=== PATIENT | female | born 1965 | race Hispanic/Latino ===

== ENCOUNTER 2022-03-03 15:00 | Inpatient (IN) | payer OTHER ==
[~2022-03-03] VITALS: Ht 165.1 cm; Wt 93.4 kg
[2022-03-03 15:19] LABS: BASOPHILS % (AUTO) 0.6 % (0.0-5.0); EOSINOPHILS % (AUTO) 2.8 % (0.0-8.0); LYMPHOCYTES % (AUTO) 27.9 % (21.0-51.0); MEAN CORPUSCULAR HGB CONC 32.8 g/dL (32.0-36.0); MEAN CORPUSCULAR VOLUME 88.7 fL (79-99); MONOCYTES % (AUTO) 6.4 % (3.0-13.0); NEUTROPHILS % (AUTO) 62.1 % (40.0-77.0); PLATELET COUNT (AUTO) 350 K/uL (130-400); RED BLOOD CELL COUNT(AUTO) 4.51 MIL/uL (4.00-5.50); RED CELL DISTRIBUTION WIDTH 15.8 % (11.0-15.5); WHITE BLOOD COUNT (AUTO) 8.5 K/uL (4.8-10.8)
[2022-03-03 15:32] LABS: ALBUMIN 3.3 g/dL (3.5-5.0); CREATININE 0.8 mg/dL (0.5-1.5); CRP QUANTITATIVE 7.8 mg/L (0.00-9.0); POTASSIUM 3.8 mmol/L (3.5-5.1)
[2022-03-03 15:34] LABS: INR 0.93 (0.85-1.15); PROTHROMBIN TIME 9.8 SEC (9.6-11.6)
[2022-03-03 15:36] LABS: PARTIAL THROMBOPLASTIN TIME 25.7 SEC (26.3-35.5)
[2022-03-03 15:40] LABS: APPEARANCE,URINE CLEAR (CLEAR); BILIRUBIN,URINE NEGATIVE (NEGATIVE); COLOR,URINE LIGHT-YELLOW (YELLOW); GLUCOSE, URINE (UA) NEGATIVE (NEGATIVE); KETONES,URINE NEGATIVE (NEGATIVE); LEUKOCYTE ESTERASE ,URINE NEGATIVE Leu/uL (NEGATIVE); NITRATE,URINE NEGATIVE (NEGATIVE); OCCULT BLOOD,URINE NEGATIVE (NEGATIVE); PH,URINE 5.5 (5.0-8.0); PROTEIN,URINE NEGATIVE (NEGATIVE); UROBILINOGEN,URINE 0.2 mg/dL (0.2-1.0)
[2022-03-03 15:52] LABS: MUCUS,URINE RARE LPF (None Seen); RBC,URINE 0-1 /HPF (0-1); SQUAMOUS EPITHELIAL CELL,UR RARE /HPF (0-2); WBC,URINE 0-1 /HPF (0-1)
[2022-03-04 08:59] VITALS: BP 111/64
[2022-03-04] MEDS ORDERED: OMEP40CA21 PO (13:02)
[2022-03-04] MEDS ORDERED: BACL10TA PO (13:02)
[2022-03-04] MEDS ORDERED: COD1CAPS16 PO (13:02)
[2022-03-04] MEDS ORDERED: MV-M1TAB20 PO (13:02)
[2022-03-04] MEDS ORDERED: CYAN250014 PO (13:02)
[2022-03-04] MEDS ORDERED: MULT-1203 PO (13:02)
[2022-03-04] MEDS ORDERED: ozempic SQ (13:02)
[2022-03-04] MEDS ORDERED: Tylenol Arthritis PO (13:02)
[2022-03-05] VITALS (25 sets, daily range): BP systolic 92–153; BP diastolic 45–92
[2022-03-05] MEDS: CEFAZOLIN SODIUM 1 GM VIAL IVP SCH ×4 (05:00→20:51)
[2022-03-05] MEDS ORDERED: TRANEXAMIC ACID 1000MG/10ML ONE ×3 (05:13→07:05)
[2022-03-05] MEDS ORDERED: ROPIVACAINE 0.5% 5MG/ML 30ML IJ ONE (05:25)
[2022-03-05] MEDS ORDERED: KETAMINE 50MG/ML SYRINGE 50 MG/ML DISP.SYRIN IV ONE (05:26)
[2022-03-05] MEDS ORDERED: 0.9%NACL 1000ML 1,000 ML IV ONE (06:18)
[2022-03-05] MEDS ORDERED: LIDOCAINE PF 100MG/5ML (2%) SYRINGE 5ML ONE ×3 (07:06→09:55)
[2022-03-05] MEDS ORDERED: CITRIC ACID/SODIUM CITRATE 30 ML UDCUP ONE (07:07)
[2022-03-05] MEDS ORDERED: DEXAMETHASONE SOD PHOSPHATE 10MG/ML 1ML VIAL ONE (07:13)
[2022-03-05] MEDS ORDERED: SUCCINYLCHOLINE CHLORIDE 20 MG/ML 10 ML VIAL ONE (07:13)
[2022-03-05] MEDS ORDERED: ONDANSETRON 4MG INJ ONE (07:14)
[2022-03-05] MEDS ORDERED: ROCURONIUM 10MG/1ML SYR 10 MG/ML ML ONE ×2 (07:14→08:22)
[2022-03-05] MEDS ORDERED: MIDAZOLAM HCL 1 MG/ML 2ML VIAL ONE (07:14)
[2022-03-05] MEDS ORDERED: PROPOFOL 10 MG/ML 20ML VIAL IV ONE (07:14)
[2022-03-05] MEDS ORDERED: GLYCOPYRROLATE 1 MG/5 ML SYRINGE ONE (07:14)
[2022-03-05] MEDS ORDERED: NEOSTIGMINE 5MG/5ML SYR IV ONE (07:14)
[2022-03-05] MEDS ORDERED: FENTANYL CITRATE PF 50 MCG/1 ML 2ML VIAL ONE ×3 (07:14→10:45)
[2022-03-05] MEDS ORDERED: MEPERIDINE-PF 25 MG/ML SYG ONE ×2 (09:49→10:40)
[2022-03-05] MEDS ORDERED: HYDROCODONE/ACETAMINOPHEN 5/325 MG TAB PO PRN (10:00)
[2022-03-05] MEDS ORDERED: POTASSIUM CHLORIDE 20MEQ/100ML 100 ML IV PRN (10:00)
[2022-03-05] MEDS ORDERED: DiphenhydrAMINE HCL 50 MG/ML VIAL IVP PRN (10:00)
[2022-03-05] MEDS ORDERED: ONDANSETRON 4MG INJ IVP PRN (10:00)
[2022-03-05] MEDS ORDERED: KCL 20 MEQ ERTAB PO PRN (10:00)
[2022-03-05] MEDS ORDERED: TRAMADOL HCL 50 MG TABLET PO PRN (10:00)
[2022-03-05] MEDS: 0.9%NACL 1000ML 1,000 ML IV SCH ×2 (10:00→19:40)
[2022-03-05] MEDS ORDERED: FERROUS FUMARATE 324 MG TABLET PO PRN (10:00)
[2022-03-05] MEDS ORDERED: CALCIUM CARB 500MG PO PRN (10:00)
[2022-03-05] MEDS ORDERED: LIDOCAINE HCL-MPF 1% 2ML VIAL IV PRN (10:00)
[2022-03-05] MEDS ORDERED: POTASSIUM CHLORIDE 10% ELIXIR 20 MEQ/15 ML UDCUP PO PRN (10:00)
[2022-03-05] MEDS: KETOROLAC 15MG/ML VIAL (15MG/ML) IV SCH ×2 (10:00→18:22)
[2022-03-05] MEDS ORDERED: SUGAMMADEX SODIUM 200 MG/2 ML VIAL IV ONE (10:08)
[2022-03-05] MEDS: CYCLOBENZAPRINE HCL 10 MG TABLET PO PRN (11:52)
[2022-03-05] MEDS: GABAPENTIN 100 MG CAPSULE PO SCH ×2 (15:35→19:39)
[2022-03-05] MEDS ORDERED: BACLOFEN 10 MG TABLET PO PRN (18:30)
[2022-03-05] MEDS: PHARMACY COMMUNICATION MISC SCH ×2 (19:30→22:43)
[2022-03-05] MEDS: COD LIVER OIL PO SCH (19:39)
[2022-03-05] MEDS: DOCUSATE SODIUM 100 MG CAP PO SCH (19:39)
[2022-03-05] MEDS: CYANOCOBALAMIN (VITAMIN B-12) 1,000 MCG TABLET PO SCH (19:40)
[2022-03-05] MEDS: VITAMIN D3 COMPLETE PO SCH (19:40)
[2022-03-06] VITALS: BP 128/69
[2022-03-06] MEDS: KETOROLAC 15MG/ML VIAL (15MG/ML) IV SCH (01:39)
[2022-03-06] MEDS: PHARMACY COMMUNICATION MISC SCH ×3 (03:15→22:41)
[2022-03-06 04:00] VITALS: BP 113/67
[2022-03-06 04:06] LABS: HEMATOCRIT 31.9 % (36-48); MEAN CORPUSCULAR HGB CONC 33.2 g/dL (32.0-36.0); MEAN CORPUSCULAR VOLUME 87.2 fL (79-99); RED BLOOD CELL COUNT(AUTO) 3.66 MIL/uL (4.00-5.50); RED CELL DISTRIBUTION WIDTH 15.5 % (11.0-15.5); WHITE BLOOD COUNT (AUTO) 11.9 K/uL (4.8-10.8)
[2022-03-06 04:13] LABS: CREATININE 0.8 mg/dL (0.5-1.5); POTASSIUM 3.3 mmol/L (3.5-5.1)
[2022-03-06] MEDS: 0.9%NACL 1000ML 1,000 ML IV SCH (05:02)
[2022-03-06 08:00] VITALS: BP 157/101
[2022-03-06] MEDS: ASPIRIN 325MG TAB PO SCH (08:07)
[2022-03-06] MEDS: POLYETHYLENE GLYCOL 3350 17 GM POWD.PACK PO SCH (08:07)
[2022-03-06] MEDS: CYCLOBENZAPRINE HCL 10 MG TABLET PO PRN (08:07)
[2022-03-06] MEDS: GABAPENTIN 100 MG CAPSULE PO SCH ×3 (08:07→19:27)
[2022-03-06] MEDS: CYANOCOBALAMIN (VITAMIN B-12) 1,000 MCG TABLET PO SCH ×2 (08:08→19:27)
[2022-03-06] MEDS: PANTOPRAZOLE 40 MG TAB DR PO SCH (08:08)
[2022-03-06] MEDS: MULTIVITAMIN TABLET PO SCH (08:08)
[2022-03-06] MEDS: DOCUSATE SODIUM 100 MG CAP PO SCH ×2 (08:08→19:27)
[2022-03-06] MEDS: VITAMIN D3 COMPLETE PO SCH ×2 (09:00→19:27)
[2022-03-06] MEDS: COD LIVER OIL PO SCH ×2 (09:00→19:27)
[2022-03-06 11:32] VITALS: BP 155/92
[2022-03-06] MEDS: HYDROCODONE/ACETAMINOPHEN 5/325 MG TAB PO PRN ×2 (15:26→19:30)
[2022-03-06 16:00] VITALS: BP 130/70
[2022-03-06 20:00] VITALS: BP 100/65
[2022-03-07] VITALS: BP 151/66
[2022-03-07] MEDS: PHARMACY COMMUNICATION MISC SCH (02:49)
[2022-03-07 03:30] VITALS: BP 111/75
[2022-03-07] MEDS: PANTOPRAZOLE 40 MG TAB DR PO SCH (08:26)
[2022-03-07] MEDS: COD LIVER OIL PO SCH (08:26)
[2022-03-07] MEDS: GABAPENTIN 100 MG CAPSULE PO SCH ×2 (08:26→15:44)
[2022-03-07] MEDS: ASPIRIN 325MG TAB PO SCH (08:26)
[2022-03-07] MEDS: DOCUSATE SODIUM 100 MG CAP PO SCH (08:26)
[2022-03-07] MEDS: POLYETHYLENE GLYCOL 3350 17 GM POWD.PACK PO SCH (08:27)
[2022-03-07] MEDS: VITAMIN D3 COMPLETE PO SCH (08:27)
[2022-03-07] MEDS: HYDROCODONE/ACETAMINOPHEN 5/325 MG TAB PO PRN ×2 (08:28→13:06)
[2022-03-07] MEDS: MULTIVITAMIN TABLET PO SCH (08:29)
[2022-03-07] MEDS: CYANOCOBALAMIN (VITAMIN B-12) 1,000 MCG TABLET PO SCH (08:30)
[2022-03-07 09:00] VITALS: BP 119/63
[2022-03-07 11:20] VITALS: BP 123/58
[2022-03-07] MEDS ORDERED: MAGNESIUM HYDROXIDE 30 ML/UDCUP ONE (11:59)
[2022-03-07] MEDS ORDERED: MAGNESIUM HYDROXIDE 30 ML/UDCUP PO SCH (12:00)
[2022-03-07 15:30] VITALS: BP 110/70
[2022-03-07] MEDS ORDERED: CYCL-309 PO (16:49)
[2022-03-07] MEDS ORDERED: ASPI-891 PO (16:49)
[2022-03-07] MEDS ORDERED: GABA100C PO (16:49)
[2022-03-07] MEDS ORDERED: HYDR-4060 PO ×2 (16:49→17:35)
[2022-03-07] MEDS ORDERED: DOCU-116 PO ×2 (16:49→17:35)
[2022-03-07] MEDS ORDERED: GABA-529 PO (17:35)
[2022-03-07] MEDS ORDERED: CYCL5TAB PO (17:35)
[2022-03-07] MEDS ORDERED: ASPI-1012 PO (17:35)
[2022-03-08] MEDS ORDERED: ASPIRIN 325MG EC TAB PO SCH (09:00)
[2022-03-08] MEDS ORDERED: BISACODYL 10 MG SUPP.RECT RC PRN (10:00)
== END 2022-03-07 20:00 | disposition home health service (06) | DRG 324 ==
LOC: EDSTATUS 15:00 → DAHIP 03-05 05:55 → 4CH 03-05 11:35 → 4BH 03-06 15:39
PROVIDERS: ADMIT Student in an Organized Health Care Education/Training Program; ATTEND Student in an Organized Health Care Education/Training Program
PROC: 0SRB0JZ Replacement of Left Hip Joint with Synthetic Substitute, Open Approach (ICD-10-PCS; principal; 2022-03-05 07:26)
DX: M87.052 Idiopathic aseptic necrosis of left femur (principal); D64.9 Anemia, unspecified; E87.6 Hypokalemia; Z20.822 Contact with and (suspected) exposure to COVID-19
CPT/HCPCS: 36415; 73502; 80048; 81001; 82040; 82948; 84134; 84703; 85025; 85027; 85610; 85730; 86140; 87088; 87426; 87641; 97039; C1776; G0378; J0330; J0690; J1100; J1885; J2001; J2175; J2250; J2405; J2704; J2710; J2795; J3010; J3490; J7030

== ENCOUNTER 2022-06-20 08:00 | Inpatient (IN) | payer OTHER ==
[~2022-06-20] VITALS: Ht 172.7 cm; Wt 87.1 kg
[~2022-06-20 08:00] MED LIST: MULT-1203 PO; MV-M1TAB20 PO; OMEP40CA21 PO
[2022-08-08 12:11] LABS: BASOPHILS % (AUTO) 0.8 % (0.0-5.0); EOSINOPHILS % (AUTO) 4.3 % (0.0-8.0); HEMATOCRIT 43.7 % (36-48); LYMPHOCYTES % (AUTO) 29.3 % (21.0-51.0); MEAN CORPUSCULAR HEMOGLOBIN 27.5 pg (27.0-33.0); MEAN CORPUSCULAR HGB CONC 32.3 g/dL (32.0-36.0); MEAN CORPUSCULAR VOLUME 85.4 fL (79-99); MONOCYTES % (AUTO) 6.8 % (3.0-13.0); NEUTROPHILS % (AUTO) 58.5 % (40.0-77.0); PLATELET COUNT (AUTO) 402 K/uL (130-400); RED BLOOD CELL COUNT(AUTO) 5.12 MIL/uL (4.00-5.50); RED CELL DISTRIBUTION WIDTH 16.4 % (11.0-15.5)
[2022-08-08 12:41] LABS: INR 0.93 (0.85-1.15); PROTHROMBIN TIME 9.8 SEC (9.6-11.6)
[2022-08-08 12:42] LABS: PARTIAL THROMBOPLASTIN TIME 27.3 SEC (26.3-35.5)
[2022-08-08 12:43] LABS: ALBUMIN 3.7 g/dL (3.5-5.0); CARBON DIOXIDE 28 mmol/L (21-32); CHLORIDE 103 mmol/L (101-111); CREATININE 0.8 mg/dL (0.5-1.5); GLOMERULAR FILTR. RATE CALC 87 mL/min (>90); GLUCOSE,RANDOM 89 mg/dL (70-105); POTASSIUM 3.9 mmol/L (3.5-5.1); SODIUM SERUM 140 mmol/L (136-145); UREA NITROGEN, BLOOD 8 mg/dL (7-18)
[2022-08-08 12:45] LABS: CRP QUANTITATIVE < 2.00 mg/L (0.00-9.0)
[2022-08-11] VITALS (31 sets, daily range): BP systolic 89–161; BP diastolic 63–92
[2022-08-11] MEDS ORDERED: CEFAZOLIN SODIUM 1 GM VIAL IVPB SCH (06:00)
[2022-08-11 06:39] LABS: APPEARANCE,URINE SL CLOUDY (CLEAR); BILIRUBIN,URINE NEGATIVE (NEGATIVE); COLOR,URINE YELLOW (YELLOW); GLUCOSE, URINE (UA) NEGATIVE (NEGATIVE); KETONES,URINE 5 mg/dL (NEGATIVE); LEUKOCYTE ESTERASE ,URINE MODERATE Leu/uL (NEGATIVE); NITRATE,URINE POSITIVE (NEGATIVE); OCCULT BLOOD,URINE TRACE-INTACT (NEGATIVE); PROTEIN,URINE TRACE mg/dL (NEGATIVE); UROBILINOGEN,URINE 0.2 mg/dL (0.2-1.0)
[2022-08-11 07:07] LABS: BACTERIA,URINE Moderate /HPF (None Seen)
[2022-08-11 07:08] LABS: SQUAMOUS EPITHELIAL CELL,UR Few /HPF (0-2)
[2022-08-11] MEDS ORDERED: FENTANYL CITRATE PF 50 MCG/1 ML 2ML VIAL ONE ×3 (08:19→13:02)
[2022-08-11] MEDS ORDERED: MIDAZOLAM HCL 1 MG/ML 2ML VIAL ONE (08:19)
[2022-08-11] MEDS ORDERED: PROPOFOL 10 MG/ML 20ML VIAL IV ONE (08:19)
[2022-08-11] MEDS ORDERED: ROCURONIUM 10MG/1ML SYR 10 MG/ML ML ONE ×2 (08:19→10:11)
[2022-08-11] MEDS ORDERED: TRANEXAMIC ACID 1000MG/10ML ONE ×2 (08:20→12:47)
[2022-08-11] MEDS ORDERED: ONDANSETRON 4MG INJ ONE (08:32)
[2022-08-11] MEDS ORDERED: ROPIVACAINE 0.5% 5MG/ML 30ML IJ ONE (08:37)
[2022-08-11] MEDS ORDERED: LIDOCAINE 2%-EPI 1:200,000 20 ML VIAL IJ ONE (08:37)
[2022-08-11] MEDS ORDERED: DEXAMETHASONE SOD PHOSPHATE 10MG/ML 1ML VIAL ONE (08:38)
[2022-08-11] MEDS ORDERED: CEFAZOLIN SODIUM 2 GM VIAL IVPB ONE (09:49)
[2022-08-11] MEDS ORDERED: TRANEXAMIC ACID 1000MG/10ML IV ONE (10:11)
[2022-08-11] MEDS ORDERED: MORPHINE PF 100MG/10ML AMP IV ONE (10:29)
[2022-08-11] MEDS ORDERED: NEOSTIGMINE 5MG/5ML SYR IV ONE (12:50)
[2022-08-11] MEDS ORDERED: GLYCOPYRROLATE 1 MG/5 ML SYRINGE ONE (12:50)
[2022-08-11] MEDS ORDERED: KETOROLAC 30MG VIAL (30MG/ML) ONE (13:02)
[2022-08-11] MEDS ORDERED: FERROUS FUMARATE 324 MG TABLET PO PRN (13:30)
[2022-08-11] MEDS ORDERED: KETOROLAC 15MG/ML VIAL (15MG/ML) IV PRN (13:30)
[2022-08-11] MEDS ORDERED: KCL 20 MEQ ERTAB PO PRN (13:30)
[2022-08-11] MEDS ORDERED: POTASSIUM CHLORIDE 20MEQ/100ML 100 ML IV PRN (13:30)
[2022-08-11] MEDS ORDERED: DiphenhydrAMINE HCL 50 MG/ML VIAL IVP PRN (13:30)
[2022-08-11] MEDS ORDERED: POTASSIUM CHLORIDE 10% ELIXIR 20 MEQ/15 ML UDCUP PO PRN (13:30)
[2022-08-11] MEDS ORDERED: LIDOCAINE HCL-MPF 1% 2ML VIAL IV PRN (13:30)
[2022-08-11] MEDS ORDERED: CYCLOBENZAPRINE HCL 10 MG TABLET PO PRN (13:30)
[2022-08-11] MEDS ORDERED: KETOROLAC 15MG/ML VIAL (15MG/ML) IV SCH (13:30)
[2022-08-11] MEDS ORDERED: ONDANSETRON 4MG INJ IVP PRN (13:30)
[2022-08-11] MEDS ORDERED: MEPERIDINE-PF 25 MG/ML SYG ONE (13:35)
[2022-08-11] MEDS ORDERED: METOCLOPRAMIDE 10 MG/2 ML VIAL ONE (13:44)
[2022-08-11] MEDS: CEFAZOLIN SODIUM 1 GM VIAL IVP SCH (17:35)
[2022-08-11] MEDS: GABAPENTIN 100 MG CAPSULE PO SCH ×2 (17:36→20:32)
[2022-08-11] MEDS: 0.9%NACL 1000ML 1,000 ML IV SCH (19:18)
[2022-08-11] MEDS: VITAMIN D3 COMPLETE PO SCH (20:32)
[2022-08-11] MEDS: DOCUSATE SODIUM 100 MG CAP PO SCH (20:32)
[2022-08-11] MEDS: HYDROCODONE/ACETAMINOPHEN 5/325 MG TAB PO PRN (20:37)
[2022-08-12] MEDS: CEFAZOLIN SODIUM 1 GM VIAL IVP SCH (01:41)
[2022-08-12] MEDS: KETOROLAC 15MG/ML VIAL (15MG/ML) IV SCH ×2 (01:42→09:25)
[2022-08-12] MEDS: 0.9%NACL 1000ML 1,000 ML IV SCH ×2 (01:47→09:30)
[2022-08-12 04:44] LABS: MEAN CORPUSCULAR HEMOGLOBIN 27.8 pg (27.0-33.0); MEAN CORPUSCULAR HGB CONC 32.7 g/dL (32.0-36.0); MEAN CORPUSCULAR VOLUME 85.2 fL (79-99); RED BLOOD CELL COUNT(AUTO) 3.52 MIL/uL (4.00-5.50); RED CELL DISTRIBUTION WIDTH 16.2 % (11.0-15.5); WHITE BLOOD COUNT (AUTO) 11.6 K/uL (4.8-10.8)
[2022-08-12 04:48] LABS: CREATININE 0.7 mg/dL (0.5-1.5)
[2022-08-12 06:06] VITALS: BP 121/66
[2022-08-12] MEDS: HYDROCODONE/ACETAMINOPHEN 5/325 MG TAB PO PRN ×4 (06:16→20:42)
[2022-08-12 07:20] VITALS: BP 147/86
[2022-08-12] MEDS: VITAMIN D3 COMPLETE PO SCH ×2 (09:00→20:42)
[2022-08-12] MEDS: CALCIUM CARB 500MG PO PRN ×2 (09:25→20:45)
[2022-08-12] MEDS: POLYETHYLENE GLYCOL 3350 17 GM POWD.PACK PO SCH (09:25)
[2022-08-12] MEDS: GABAPENTIN 100 MG CAPSULE PO SCH ×3 (09:25→20:38)
[2022-08-12] MEDS: DOCUSATE SODIUM 100 MG CAP PO SCH ×2 (09:25→20:37)
[2022-08-12] MEDS: TRAMADOL HCL 50 MG TABLET PO PRN (09:25)
[2022-08-12] MEDS: MULTIVITAMIN TABLET PO SCH (09:25)
[2022-08-12] MEDS: OMEPRAZOLE 80 MG PO SCH (09:32)
[2022-08-12 11:20] VITALS: BP 150/96
[2022-08-12] MEDS ORDERED: MAG/ALUM/SIMETH 30 ML UDCUP ONE (12:44)
[2022-08-12] MEDS ORDERED: MAG/ALUM/SIMETH 30 ML UDCUP PO PRN (13:00)
[2022-08-12 15:15] VITALS: BP 129/73
[2022-08-12] MEDS ORDERED: KETOROLAC 15MG/ML VIAL (15MG/ML) IV PRN (16:30)
[2022-08-12 20:49] VITALS: BP 132/76
[2022-08-13 00:44] VITALS: BP 122/69
[2022-08-13 04:57] VITALS: BP 118/69
[2022-08-13] MEDS: HYDROCODONE/ACETAMINOPHEN 5/325 MG TAB PO PRN (06:40)
[2022-08-13 08:00] VITALS: BP 117/70
[2022-08-13] MEDS: VITAMIN D3 COMPLETE PO SCH (09:00)
[2022-08-13] MEDS: POLYETHYLENE GLYCOL 3350 17 GM POWD.PACK PO SCH (09:44)
[2022-08-13] MEDS: GABAPENTIN 100 MG CAPSULE PO SCH ×2 (09:47→14:19)
[2022-08-13] MEDS: DOCUSATE SODIUM 100 MG CAP PO SCH (09:47)
[2022-08-13] MEDS: MULTIVITAMIN TABLET PO SCH (09:47)
[2022-08-13] MEDS: TRAMADOL HCL 50 MG TABLET PO PRN (09:52)
[2022-08-13 11:30] VITALS: BP 103/65
[2022-08-13] MEDS: OMEPRAZOLE 80 MG PO SCH (12:00)
[2022-08-13] MEDS ORDERED: GABA100C PO (15:01)
[2022-08-13] MEDS ORDERED: CYCL-309 PO (15:01)
[2022-08-13] MEDS ORDERED: DOCU-116 PO (15:01)
[2022-08-13] MEDS ORDERED: ASPI-1026 PO (15:01)
[2022-08-13] MEDS ORDERED: HYDR-4060 PO (15:01)
[2022-08-13] MEDS ORDERED: SULF1TAB42 PO (15:01)
[2022-08-13 16:00] VITALS: BP 109/71
[2022-08-13] MEDS ORDERED: SULFAMETHOX-TMP DS 800/160 TAB PO SCH (21:00)
[2022-08-14] MEDS ORDERED: BISACODYL 10 MG SUPP.RECT RC PRN (13:30)
== END 2022-08-13 18:30 | disposition home or self-care (01) | DRG 323 ==
LOC: DAHIP 08-11 06:02 → 4BH 08-11 14:19
PROVIDERS: ADMIT Student in an Organized Health Care Education/Training Program; ATTEND Student in an Organized Health Care Education/Training Program
PROC: 0SR90JZ Replacement of Right Hip Joint with Synthetic Substitute, Open Approach (ICD-10-PCS; 2022-08-11)
PROC: 0QS604Z Reposition Right Upper Femur with Internal Fixation Device, Open Approach (ICD-10-PCS; principal; 2022-08-11 09:55)
DX: S72.111A Displaced fracture of greater trochanter of right femur, initial encounter for closed fracture (principal); D62 Acute posthemorrhagic anemia; E11.22 Type 2 diabetes mellitus with diabetic chronic kidney disease; Z20.822 Contact with and (suspected) exposure to COVID-19; M87.051 Idiopathic aseptic necrosis of right femur; N18.9 Chronic kidney disease, unspecified; X58.XXXA Exposure to other specified factors, initial encounter; Y93.89 Activity, other specified; Y92.89 Other specified places as the place of occurrence of the external cause; Y99.8 Other external cause status
CPT/HCPCS: 36415; 73502; 73503; 80048; 81001; 82040; 84134; 84703; 85025; 85027; 85610; 85730; 86140; 87077; 87088; 87186; 87426; 87641; 93005; 97039; G0378; J0690; J1100; J1885; J2175; J2250; J2274; J2405; J2704; J2710; J2765; J2795; J3010; J3490